=== PATIENT | male | born 1950 | race Caucasian/White ===

== ENCOUNTER 2017-08-20 19:10 | Inpatient (IN) | payer MEDICARE, MEDICAID ==
[2017-08-21 01:34] VITALS: BP 136/83
--- NOTE | 2017-08-21 23:38 | Psychosocial Evaluation ---
DATE OF SERVICE: INITIAL EVALUATION AND MENTAL STATUS EXAM AGE: 66. SEX: Male. PHYSICIAN: Dr. Cohen. CHIEF COMPLAINT: 5150 hold for danger to others and grave disability. HISTORY OF PRESENT ILLNESS: The patient was placed on 5150 hold in [facility] after the patient was agitated and hit people with a walker and was throwing things on the floor and he was disoriented and psychotic according to the hold. The patient has history of schizophrenia. The patient then was transferred to [facility] and then to [facility]. Chart reviewed and patient interviewed and discussed the patient's condition with the staff. The patient said that he was in [facility] for about total 14 months because of violation of probation and the patient was on probation for stealing luggage. The patient said at that time when he stole luggage he was high on heroin and morphine. He admitted that he has a history of schizoaffective disorder and has been paranoid and suspicious lately. Also, has been in angry mood and gets agitated easily. PAST PSYCHIATRIC HISTORY: The patient has history of multiple psychiatric hospitalizations for treatment of schizoaffective disorder. PAST MEDICAL HISTORY: The patient said that he has pain in his left elbow. Otherwise, no major medical problems. SOCIAL HISTORY: The patient is single, never and has no children. He is on disability. The patient is homeless. He denies any history of abuse. The patient was in fpc as mentioned above. CHEMICAL DEPENDENCY HISTORY: The patient said that he used heroin and morphine for a short time prior to his going to fpc. ALLERGIES: No known allergies. MENTAL STATUS EXAMINATION: The patient appears slightly older than his stated age. Anxious. Irritable mood. Thought processes are circumstantial with occasional flight of ideas. The patient denies auditory or visual hallucinations, but seems to be paranoid. The patient denies any thoughts of suicide or homicide. The patient is alert and oriented to time, place, person, and situation. Intact immediate, recent and remote memories. Fair insight and he knows that he have psychiatric problems and needs help. Poor judgment and he was hitting others and throwing objects. He seems to be of average intelligence based on his verbal ability. ASSESSMENT/PRIMARY DIAGNOSIS: Schizoaffective disorder, bipolar type, severe, with psychotic features. TREATMENT PLAN: We will monitor the patient's behavior and condition closely. We will start individual as well as milieu psychotherapy. Also, we will continue the patient on Zoloft and Zyprexa and we will adjust the dose. Also, we will place the patient on 5250 hold for dangerous to others and grave disability. ESTIMATED LENGTH OF STAY: 5-7 days. THE PATIENT'S STRENGTHS AND WEAKNESSES: The patient's strength is not clear at this time. Weaknesses are ineffective coping and poor impulse control and his agitation. AFTER DISCHARGE PLAN: Outpatient treatment and followup and the patient might need placement. CRITERIA FOR DISCHARGE: The patient will have better impulse control, will not be psychotic and we will stabilize psychotropic medications. JOB# [id number]
--- NOTE | 2017-08-22 06:39 | Progress Notes ---
DATE: 08/22/2017 SUBJECTIVE: Chart reviewed and the patient interviewed. Also discussed the patient's condition with the staff and reviewed records and labs. The patient is still anxious and he is still suspicious and slightly paranoid. The patient also still has episodes of irritability and agitation. The patient also is still confused and is still unable to provide any safe plan for self-care. The patient also is restless and still needs lots of directions. Otherwise, the patient started on Zyprexa and Zoloft with no side effects. Also, the patient was placed on 5250 hold. ASSESSMENT: The patient is still confused and considered to be gravely disabled. TREATMENT PLAN: We will continue monitoring his behavior and his condition closely. Also, we will continue to work on his irritability and his agitation. JOB# [id number]
--- NOTE | 2017-08-22 07:28 | History & Physical ---
ADMIT DATE: 08/20/2017 REASON FOR ADMISSION: Psychiatric disorder. HISTORY OF PRESENT ILLNESS: This 66-year-old male admitted to [facility] for underlying psychiatric illness by Dr. Cohen. Dr. Cohen requested medical H and P on this patient. The patient said that he is doing fine. The patient denies any medical complaints. PAST MEDICAL HISTORY: None. PAST SURGICAL HISTORY: Denies. FAMILY HISTORY: Denies. SOCIAL HISTORY: Lives at home. Denies any alcohol, tobacco, or street drug use. CURRENT MEDICATIONS: Acetaminophen, Ativan, Zyprexa, Zoloft, and Ambien. REVIEW OF SYSTEMS: The patient denies any headache or double vision or trouble speech. No nausea, vomiting, or abdominal pain. No chest pain, shortness of breath, dizziness, or palpitations. No other complaints. PHYSICAL EXAMINATION: VITAL SIGNS: Temperature 98.8, pulse 62, respirations 18, blood pressure 114/70, and oxygen 100% on room air. Pain 0/10. GENERAL APPEARANCE: The patient does not seem in acute distress. HEART: S1, S2 normal. LUNGS: Clear to auscultation bilaterally. ABDOMEN: Soft, nontender. NEUROLOGIC: Awake, alert, follows commands. Moves all extremities. Grossly nonfocal exam. EXTREMITIES: No edema. AVAILABLE LABORATORY DATA: No laboratory ____. ASSESSMENT: 1. Psychiatric disorders. 2. Normal history and physical. PLAN: The patient will be continued on current psychotropic medications. We will obtain fasting blood sugar and fasting lipid panel. The patient is medically stable to participate in activities in Geropsych Unit. Thank you Dr. Cohen for allowing me to see this patient. [facility]# [id number]
[2017-08-22 08:20] LABS: % BASOPHILS 0.5 % (0.0-2.0); % EOSINOPHILS 1.5 % (0.0-5.0); % LYMPHOCYTES 19.3 % (20.0-50.0); % MONOCYTES 13.1 % (2.0-10.0); % NEUTROPHILS 65.6 % (40.0-80.0); EOSINOPHILE ABSOLUTE 0.1 Th/cmm (0.1-0.4); HEMATOCRIT 39.9 % (41.0-60); HEMOGLOBIN 13.5 gm/dL (12-16); LYMPHOCYTE ABSOLUTE 1.2 Th/cmm (1.5-3.0); MEAN CELL VOLUME 96.5 fl (80-99); MEAN CORPUSCULAR HEMOGLOBIN 32.7 pg (26.0-30.0); MEAN CORPUSCULAR HGB CONC 33.9 pg (28.0-36.0); MEAN PLATELET VOLUME 7.2 fl; MONOCYTE ABSOLUTE 0.8 Th/cmm (0.3-1.0); PLATELET COUNT 264 Th/cmm (150-400); RED BLOOD COUNT 4.13 Mil/cmm (4.30-5.70); RED CELL DISTRIBUTION WIDTH 12.2 % (11.5-20.0); WHITE BLOOD COUNT 6.1 Th/cmm (4.8-10.8)
[2017-08-22 08:37] LABS: ANION GAP 11.1 (7.0-16.0); BUN - UREA NITROGEN 13 mg/dL (7-25); CALCIUM SERUM 9.5 mg/dL (8.6-10.3); CHLORIDE 96 mEq/L (98-107); CHOLESTEROL 129 mg/dL (<200); CREATININE - SERUM 0.7 mg/dL (0.7-1.3); GFR AFRICAN-AMERICAN > 60.0 ml/min (>90); GFR NON AFRICAN-AMERICAN > 60.0 ml/min; GLUCOSE 74 mg/dL (70-105); HDL -HIGH DENSITY LIPOPROTEIN 56 mg/dL (23-92); POTASSIUM SERUM 4.1 mEq/L (3.5-5.1); SODIUM SERUM 130 mEq/L (136-145); TRIGLYCERIDES 161 mg/dL (<150)
--- NOTE | 2017-08-23 22:57 | Progress Notes ---
DATE: Chart reviewed and the patient interviewed. Also discussed the patient's condition with the staff and reviewed records and labs. The patient is isolative and is still in angry and in irritable mood. Also, is still easily agitated. The patient also is suspicious and paranoid and he is restless. Otherwise, the patient continued to comply with medications with no side effects. ASSESSMENT: The patient is still psychotic and can be dangerous to others. TREATMENT PLAN: We will increase Zyprexa to 20 mg at bedtime and we will continue Zoloft 50 mg every day. Also, continue to work on behavior modification and follow up. JOB# [id number]
--- NOTE | 2017-08-24 20:58 | Progress Notes ---
DATE: SUBJECTIVE: Chart reviewed and the patient interviewed. Also discussed the patient's condition with the staff and reviewed records and labs. The patient is still isolative and withdrawn. The patient also wants to be left alone and is still easily agitated when staff bothering him. Also, is still restless and suspicious and paranoid with severe mood swings. Otherwise, the patient is compliant with taking his medications with no side effects. ASSESSMENT: The patient seems to be more depressed today. TREATMENT PLAN: Continue monitoring his behavior and his condition closely. Also, we will increase Zoloft to 75 mg every day and to continue Zyprexa 20 mg at bedtime and will continue to follow up. [facility]# [id number]
--- NOTE | 2017-08-25 22:42 | Progress Notes ---
DATE: SUBJECTIVE: The patient was seen and evaluated. The patient's chart reviewed. This is Dr. Emanuel covering for Dr. Cohen. IDENTIFYING DATA: A 66-year-old male brought in here from [facility] after placed on a 5150. He was extremely agitated, hitting people with a walker and was throwing things on the floor. He was disoriented, was psychotic. HOSPITAL COURSE: He has been isolative, withdrawn, disengaged and very depressed. Today on [id number] evaluation, continues to be disengaged, depressed. He reports feeling helpless. MENTAL STATUS EXAMINATION: Depressed, melancholic, aloof. ASSESSMENT AND PLAN: The patient is a 66-year-old male who is severely depressed, melancholic, will continue with the current medication regimen, which includes olanzapine 20 mg at nighttime and also recently increase of the Zoloft to 75 mg to target the patient's severe melancholic state. JOB# [id number]
--- NOTE | 2017-08-27 01:15 | Progress Notes ---
DATE: 08/26/2017 SUBJECTIVE: The patient's chart reviewed. Seen and evaluated. Today on [id number] evaluation, the patient reported his medications continues to be tolerated. No side effects of the medications. He reports a recent increase of Zoloft has helped him feel less depressed. MENTAL STATUS EXAMINATION: Feels less depressed, although he is still isolative, withdrawn, disengaged, depressed. ASSESSMENT AND PLAN: The patient is a 66-year-old male tolerating olanzapine at 20 mg and Zoloft at 75 with melancholic state continues to persist, although mild improvement compared from yesterday. [facility]# [id number]
--- NOTE | 2017-08-27 21:25 | Progress Notes ---
DATE: 08/27/[address] Cohen. Case discussed with staff of the patient, reviewed records. This is a 66-year-old male who was admitted on 08/20/2017 on a hold for danger to others and grave disability. The patient was in the [facility] after the patient was agitated, hit people with a walker, was throwing things on the floor, was disoriented and psychotic. According to the hold, the patient with a history of schizophrenia. The patient was sent [facility], then to [facility]. The patient was put in 14 months at [facility] because of violation of probation. The patient was on probation for stealing luggage. He told at that time when he stole luggage, he was high on heroin and morphine with a history of schizoaffective disorder, being paranoid, suspicious, has been in angry moods, easily agitated. The patient continues to be depressed and easily agitated. He is on Zoloft and the dose was improved. He has been isolating himself, withdrawn. When I talked to him, he denies that he has any intent to harm himself or anybody. His Zoloft was increased to 75 mg daily. He is on Zyprexa 20 mg at bedtime that was increased on 08/23/2017. No side effects with the medication, no sedation, no nausea, no extrapyramidal symptoms. We will continue to work with the patient in group therapy, milieu therapy and adjust medication as needed. [facility]# [id number]
--- NOTE | 2017-08-27 22:10 | General Progress Note ---
Subjective - Review of Systems Service Date: 08/27/17 Subjective: Patient doing ok no new event reported Objective - Results Result Diagrams: 08/22/17 07:15 08/22/17 07:15 Recent Labs: Laboratory Last Values WBC 6.1 Th/cmm (4.8-10.8) 08/22/17 07:15 RBC 4.13 Mil/cmm (4.30-5.70) L 08/22/17 07:15 Hgb 13.5 gm/dL (12-16) 08/22/17 07:15 Hct 39.9 % (41.0-60) L 08/22/17 07:15 MCV 96.5 fl (80-99) 08/22/17 07:15 MCH 32.7 pg (26.0-30.0) H 08/22/17 07:15 MCHC Differential 33.9 pg (28.0-36.0) 08/22/17 07:15 RDW 12.2 % (11.5-20.0) 08/22/17 07:15 Plt Count 264 Th/cmm (150-400) 08/22/17 07:15 MPV 7.2 fl 08/22/17 07:15 Neutrophils % 65.6 % (40.0-80.0) 08/22/17 07:15 Lymphocytes % 19.3 % (20.0-50.0) L 08/22/17 07:15 Monocytes % 13.1 % (2.0-10.0) H 08/22/17 07:15 Eosinophils % 1.5 % (0.0-5.0) 08/22/17 07:15 Basophils % 0.5 % (0.0-2.0) 08/22/17 07:15 Sodium 130 mEq/L (136-145) L 08/22/17 07:15 Potassium 4.1 mEq/L (3.5-5.1) 08/22/17 07:15 Chloride 96 mEq/L (98-107) L 08/22/17 07:15 Carbon Dioxide 27.0 mEq/L (21.0-31.0) 08/22/17 07:15 Anion Gap 11.1 (7.0-16.0) 08/22/17 07:15 BUN 13 mg/dL (7-25) 08/22/17 07:15 Creatinine 0.7 mg/dL (0.7-1.3) 08/22/17 07:15 Est GFR ( Amer) > 60.0 ml/min (>90) 08/22/17 07:15 Est GFR (Non-Af Amer) > 60.0 ml/min 08/22/17 07:15 BUN/Creatinine Ratio 18.6 08/22/17 07:15 Glucose 74 mg/dL (70-105) 08/22/17 07:15 Calcium 9.5 mg/dL (8.6-10.3) 08/22/17 07:15 Triglycerides 161 mg/dL (<150) H 08/22/17 07:15 Cholesterol 129 mg/dL (<200) 08/22/17 07:15 LDL Cholesterol Direct 67 mg/dL (75-193) L 08/22/17 07:15 HDL Cholesterol 56 mg/dL (23-92) 08/22/17 07:15 - Physical Exam Vitals and I&O: Vital Signs Temp 97.6 F 08/27/17 20:04 Pulse 88 08/27/17 20:04 Resp 17 08/27/17 20:04 BP 130/53 08/27/17 20:04 Pulse Ox 97 08/27/17 20:04 Intake & Output 08/27/17 08/27/17 08/28/17 06:59 18:59 06:59 Intake Total 300 1200 480 Balance 300 1200 480 Intake: Oral 300 1200 480 Other: # Voids 1 4 2 # Bowel Movements 0 1 Active Medications: Current Medications Acetaminophen (Tylenol) 650 mg PO Q4HR PRN PRN Reason: Mild Pain / Temp above 100 Stop: 10/19/17 19:39 Lorazepam (Ativan) 0.5 mg PO Q4HR PRN; Protocol PRN Reason: Anxiety Stop: 09/19/17 19:39 Olanzapine (Zyprexa) 20 mg PO HS PERLA PRN Reason: Protocol Stop: 10/22/17 10:14 Last Admin: 08/27/17 20:51 Dose: 20 mg Sertraline HCl (Zoloft) 75 mg PO DAILY PERLA PRN Reason: Protocol Stop: 10/23/17 06:25 Last Admin: 08/27/17 09:10 Dose: 75 mg Zolpidem Tartrate (Ambien) 5 mg PO HS PRN PRN Reason: Insomnia Stop: 10/19/17 19:39 Last Admin: 08/27/17 20:51 Dose: 5 mg Cardiovascular: Regular rate Lungs: Clear to auscultation Assessment/Plan - Assessment Assessment: Hyponatremia Hyperlipidemia mental health disorder - Plan Plan: Continue current medication Follow up labs in am Psych follow up Nutritional Asmnt/Malnutr-PDOC - Dietary Evaluation Malnutrition Findings (Please click <Entered> for more info): Nutritional Asmnt/Malnutrition Start: 08/27/17 13: 00 Text: Status: Complete Freq: Document 08/27/17 13:00 CELIA (Rec: 08/27/17 13:11 CELIA [email or web address]) Nutritional Asmnt/Malnutrition Patient General Information Nutritional Screening Low Risk Diagnosis psychosis Pertinent Medical Hx/Surgical Hx schizoaffective disorder Subjective Information per EMR, PO intake 100% Current Diet Order/ Nutrition Support regular Pertinent Medications zoloft Pertinent Labs 08/22 Na 130, Cl 96 Nutritional Hx/Data Height 1.63 m Height (Calculated Centimeters) 162.6 Current Weight (lbs) 71.668 kg Weight (Calculated Kilograms) 71.7 Weight (Calculated Grams) 60884.6 [place] Body Weight 130 Body Mass Index (BMI) 27.1 GI Symptoms GI Symptoms None Last BM 08/26 Difficult in: None Skin Integrity/Comment: intact Estimated Nutritional Goals Calories/Kcals/Kg 25-30 based on IBW 59kg Kcals Calculated 3318-9216 Protein g/k Protein Calculated 59 Fluid: ml 1575-1770ml (1ml/kcal) Nutritional Problem No current Nutrition Prob Problem N/A Intervention/Recommendation Comments 1. Continue with regular diet as ordered. 2. Monitor PO intake, wt, labs and skin integrity 3. F/U as low risk in 7 days, 4/2 Expected Outcomes/Goals Expected Outcomes/Goals 1. PO intake to meet at least 75% of nutritional needs. 2. Wt stability, skin to remain intact, labs to approach WNL.
[2017-08-28 07:55] LABS: ANION GAP 10.1 (7.0-16.0); BUN - UREA NITROGEN 21 mg/dL (7-25); CALCIUM SERUM 9.5 mg/dL (8.6-10.3); CARBON DIOXIDE 27.1 mEq/L (21.0-31.0); CHLORIDE 100 mEq/L (98-107); CREATININE - SERUM 0.7 mg/dL (0.7-1.3); GFR AFRICAN-AMERICAN > 60.0 ml/min (>90); GFR NON AFRICAN-AMERICAN > 60.0 ml/min; GLUCOSE 100 mg/dL (70-105); POTASSIUM SERUM 4.2 mEq/L (3.5-5.1); SODIUM SERUM 133 mEq/L (136-145)
--- NOTE | 2017-08-28 22:58 | Progress Notes ---
DATE: 08/28/[address] Cohen. Case was discussed with staff of the patient and reviewed records. The patient continues to be overwhelmed. Continues to be depressed. He has a placement issue. Continues to be easily agitated. He tolerated to increase Zoloft with no side effects, no sedation, no nausea and no extrapyramidal symptoms. He is on Zyprexa 10 mg at bedtime. We will continue outpatient in group therapy, milieu therapy, and adjust the medications as needed. JOB# [id number]
--- NOTE | 2017-08-29 20:22 | Progress Notes ---
DATE: Chart reviewed and the patient interviewed. Also discussed the patient's condition with the staff and reviewed records and labs. The patient continued to be suspicious and paranoid. The patient also is still guarded and needs redirections. He is easier to redirect him and also it seems that his thought processes are more goal directed. Also, decreased agitation and he has been more cooperative with his treatment. Also, no side effects of medications. ASSESSMENT: The patient is less agitated and less irritable. TREATMENT PLAN: Continue monitoring his behavior closely and we will continue to follow up. JOB# [id number]
--- NOTE | 2017-08-29 21:18 | General Progress Note ---
Subjective - Review of Systems Service Date: 08/29/17 Subjective: Patient doing ok denied any complaints Objective - Results Result Diagrams: 08/22/17 07:15 08/28/17 07:20 Recent Labs: Laboratory Last Values WBC 6.1 Th/cmm (4.8-10.8) 08/22/17 07:15 RBC 4.13 Mil/cmm (4.30-5.70) L 08/22/17 07:15 Hgb 13.5 gm/dL (12-16) 08/22/17 07:15 Hct 39.9 % (41.0-60) L 08/22/17 07:15 MCV 96.5 fl (80-99) 08/22/17 07:15 MCH 32.7 pg (26.0-30.0) H 08/22/17 07:15 MCHC Differential 33.9 pg (28.0-36.0) 08/22/17 07:15 RDW 12.2 % (11.5-20.0) 08/22/17 07:15 Plt Count 264 Th/cmm (150-400) 08/22/17 07:15 MPV 7.2 fl 08/22/17 07:15 Neutrophils % 65.6 % (40.0-80.0) 08/22/17 07:15 Lymphocytes % 19.3 % (20.0-50.0) L 08/22/17 07:15 Monocytes % 13.1 % (2.0-10.0) H 08/22/17 07:15 Eosinophils % 1.5 % (0.0-5.0) 08/22/17 07:15 Basophils % 0.5 % (0.0-2.0) 08/22/17 07:15 Sodium 133 mEq/L (136-145) L 08/28/17 07:20 Potassium 4.2 mEq/L (3.5-5.1) 08/28/17 07:20 Chloride 100 mEq/L (98-107) 08/28/17 07:20 Carbon Dioxide 27.1 mEq/L (21.0-31.0) 08/28/17 07:20 Anion Gap 10.1 (7.0-16.0) 08/28/17 07:20 BUN 21 mg/dL (7-25) 08/28/17 07:20 Creatinine 0.7 mg/dL (0.7-1.3) 08/28/17 07:20 Est GFR ( Amer) > 60.0 ml/min (>90) 08/28/17 07:20 Est GFR (Non-Af Amer) > 60.0 ml/min 08/28/17 07:20 BUN/Creatinine Ratio 30.0 08/28/17 07:20 Glucose 100 mg/dL (70-105) 08/28/17 07:20 Calcium 9.5 mg/dL (8.6-10.3) 08/28/17 07:20 Triglycerides 161 mg/dL (<150) H 08/22/17 07:15 Cholesterol 129 mg/dL (<200) 08/22/17 07:15 LDL Cholesterol Direct 67 mg/dL (75-193) L 08/22/17 07:15 HDL Cholesterol 56 mg/dL (23-92) 08/22/17 07:15 - Physical Exam Vitals and I&O: Vital Signs Temp 98.3 F 08/29/17 20:00 Pulse 87 08/29/17 20:00 Resp 20 08/29/17 20:00 BP 119/67 08/29/17 20:00 Pulse Ox 98 08/29/17 20:00 Intake & Output 08/29/17 08/29/17 08/30/17 06:59 18:59 06:59 Intake Total 660 1520 Balance 660 1520 Intake: Oral 660 1520 Other: # Voids 2 2 # Bowel Movements 1 Active Medications: Current Medications Acetaminophen (Tylenol) 650 mg PO Q4HR PRN PRN Reason: Mild Pain / Temp above 100 Stop: 10/19/17 19:39 Lorazepam (Ativan) 0.5 mg PO Q4HR PRN; Protocol PRN Reason: Anxiety Stop: 09/19/17 19:39 Olanzapine (Zyprexa) 20 mg PO HS PERLA PRN Reason: Protocol Stop: 10/22/17 10:14 Last Admin: 08/29/17 20:55 Dose: 20 mg Sertraline HCl (Zoloft) 75 mg PO DAILY PERLA PRN Reason: Protocol Stop: 10/23/17 06:25 Last Admin: 08/29/17 08:42 Dose: 75 mg Zolpidem Tartrate (Ambien) 5 mg PO HS PRN PRN Reason: Insomnia Stop: 10/19/17 19:39 Last Admin: 08/29/17 20:55 Dose: 5 mg Cardiovascular: Regular rate Lungs: Clear to auscultation Assessment/Plan - Assessment Assessment: Nicotine dependancy Hyperlipidemia Mental health disorder - Plan Plan: Smoking cessation discussed Continue current medication Psych follow up Nutritional Asmnt/Malnutr-PDOC - Dietary Evaluation Malnutrition Findings (Please click <Entered> for more info): Nutritional Asmnt/Malnutrition Start: 08/27/17 13: 00 Text: Status: Complete Freq: Document 08/27/17 13:00 CELIA (Rec: 08/27/17 13:11 ROSALBA [email or web address]) Nutritional Asmnt/Malnutrition Patient General Information Nutritional Screening Low Risk Diagnosis psychosis Pertinent Medical Hx/Surgical Hx schizoaffective disorder Subjective Information per EMR, PO intake 100% Current Diet Order/ Nutrition Support regular Pertinent Medications zoloft Pertinent Labs 08/22 Na 130, Cl 96 Nutritional Hx/Data Height 1.63 m Height (Calculated Centimeters) 162.6 Current Weight (lbs) 71.668 kg Weight (Calculated Kilograms) 71.7 Weight (Calculated Grams) 38835.6 [place] Body Weight 130 Body Mass Index (BMI) 27.1 GI Symptoms GI Symptoms None Last BM 08/26 Difficult in: None Skin Integrity/Comment: intact Estimated Nutritional Goals Calories/Kcals/Kg 25-30 based on IBW 59kg Kcals Calculated 3697-9272 Protein g/k Protein Calculated 59 Fluid: ml 1575-1770ml (1ml/kcal) Nutritional Problem No current Nutrition Prob Problem N/A Intervention/Recommendation Comments 1. Continue with regular diet as ordered. 2. Monitor PO intake, wt, labs and skin integrity 3. F/U as low risk in 7 days, 4/2 Expected Outcomes/Goals Expected Outcomes/Goals 1. PO intake to meet at least 75% of nutritional needs. 2. Wt stability, skin to remain intact, labs to approach WNL.
--- NOTE | 2017-09-01 21:31 | Progress Notes ---
DATE: 09/01/2017 SUBJECTIVE: The patient brought in on a hold from [facility]. He was agitated, hitting people with a walker, throwing things on the floor, disoriented, psychotic. He was apparently then transferred to [facility], then [facility]. Dr. Cohen over the past few days has been noting that the patient continued to be suspicious, highly paranoid, guarded, needing redirection. He has been calmer, somewhat cooperative, less agitated, less irritable, but still concerns about impulse control. He is taking his medications, recent dose increases which have been well tolerated, somewhat withdrawn and isolative. ASSESSMENT: The patient seems calmer, more cooperative, somewhat more engaged on exam. PLAN: We will continue to monitor, continue to titrate medications, continue to adjust medications and monitor for side effects and __during course of ___ hospitalization. JOB# [id number] DOROTHEA
--- NOTE | 2017-09-02 15:57 | Progress Notes ---
DATE: 08/30/2017 PSYCHIATRIC PROGRESS NOTE SUBJECTIVE: Chart reviewed and the patient interviewed. Also discussed the patient's condition with the staff and reviewed records and labs. The patient continued to be isolative and withdrawn. Also, is still in a depressed mood. He also is interacting minimally with others. The patient denied any intention to harm himself. He also is compliant with taking the Zoloft with no side effect. ASSESSMENT: The patient is still depressed. TREATMENT PLAN: We will continue monitoring his behavior and his condition closely. Also, increase Zoloft to 100 mg at bedtime and we will continue to follow up. JOB# [id number]
--- NOTE | 2017-09-02 16:22 | Progress Notes ---
DATE: 09/02/2017 SUBJECTIVE: The patient placed on a hold. He has been coming from shelter. He states he went to shelter because he was littering or rather picking up ___trash;__ apparently with a violation of probation, apparently using heroin and morphine in the past, history of stealing a luggage, history of schizoaffective disorder. The patient still remains somewhat isolative, not the best historian, does not know where he is going to go, homeless; however, he may be able to go to [facility], still needing some redirection, still somewhat internally preoccupied, but no agitation. He seems calmer somewhat more cooperative, answering questions appropriately. Sleeping well, eating well. MEDICATIONS: Noted including doses and frequencies. ASSESSMENT: The patient remains somewhat isolative, but calmer, more engaged on exam, friendly, answering questions appropriately. Currently on Zyprexa and Zoloft for his diagnosis. PLAN: We will continue to monitor. The patient is not experiencing any side effects. We will coordinate care with social work regarding safe discharge plan and good psychiatric followup. JOB# [id number] DOROTHEA
--- NOTE | 2017-09-02 20:52 | Progress Notes ---
DATE: 09/02/2017 SUBJECTIVE: Chart reviewed and the patient interviewed. Also discussed the patient's condition with the staff and reviewed records and labs. The patient is withdrawn and is isolative. He also is interacting minimally with others. The patient also is still feeling hopeless at time. Otherwise, the patient is compliant with taking his medications with no side effects of medications. ASSESSMENT: The patient is still depressed. TREATMENT PLAN: Continue monitoring his behavior and his condition and continue Zoloft 100 mg at bedtime and we will continue to follow up. JOB# [id number]
--- NOTE | 2017-09-05 22:12 | Progress Notes ---
DATE: 09/05/2017 Case was discussed with staff of the patient, reviewed records. This is a well known case to me because I have seen him before covering for Dr. Cohen. The patient continues to be withdrawn, isolating having minimal interaction with others. He is still feeling hopeless and depressed. He has been, however, compliant with the medication with no side effects and no sedation, no nausea and the Zoloft was increased on 08/30/2017 to 100 mg a day. He is on olanzapine 15 mg at bedtime with no side effects, no sedation, no nausea. He is still not ready to go to a lesser level of care because of his severe depression, feeling hopeless and helpless. We will continue still unable to formulate a safe plan for self-care. We will continue to work with the patient in group therapy, milieu therapy, and adjust the medications as needed. JOB# [id number]
--- NOTE | 2017-09-06 16:15 | Progress Notes ---
DATE: SUBJECTIVE: Case was discussed with staff of patient and reviewed records. The patient continues to be isolating, continues to be withdrawn, continues to have minimal interaction, feeling depressed, hopeless and helpless. He has been compliant with the medication with no side effects. PLAN: His ____ was increased recently. No side effects to medication. No sedation or nausea. No extrapyramidal symptoms. I tried to encourage patient to get out of the room and I asked the staff to try to encourage him to get out of the room. We will continue the patient in group therapy, milieu therapy, and adjust medications as needed. JOB# [id number]
--- NOTE | 2017-09-07 21:09 | Progress Notes ---
DATE: 09/07/2017 SUBJECTIVE: Case was discussed with the staff of the patient and reviewed records. The patient today was in the group room, though he was sitting by himself, not participating in any meaningful conversation. He continues to be depressed, continues to feel at times hopeless and helpless. No side effects with the medication, no sedation, no nausea. He is also on olanzapine 15 mg at bedtime with no extrapyramidal symptoms. We will continue to work with the patient in group therapy, milieu therapy, and adjust medication as needed. JOB# [id number]
--- NOTE | 2017-09-08 18:15 | Progress Notes ---
DATE: The patient was seen and evaluated. The patient's chart reviewed. Overnight, nursing staff reported the patient continues to be extremely irritable, agitated. Today on [id number] evaluation, the patient presents very angry. Reports "I don't want to fucking talk to you, get away." MENTAL STATUS EXAMINATION: Suspicious, paranoid, feeling helpless and refusing the interview. ASSESSMENT AND PLAN: The patient continues to present with intermittent aggressive behavior verbally and disengaged, continues to show extremely poor impulse control as noted above. We will continue with primary psychiatrist's treatment plan and goals, which include olanzapine 15 mg at bedtime, is able to tolerate without complications or side effects of the medications. [facility]# [id number]
--- NOTE | 2017-09-09 09:20 | Progress Notes ---
DATE: The patient was seen and evaluated. The patient's chart reviewed. Overnight nursing staff reported the patient continues to need a lot of redirection, easily irritable. Today on [id number] evaluation, the patient continues to refuse the interview. He reports that he wants to see his only doctor that he has and then disengages in interview. MENTAL STATUS EXAMINATION: Suspicious, paranoid. ASSESSMENT AND PLAN: The patient is a 66-year-old male who continues to present irritable, agitated and unable to engage in a linear conversation, need a lot of redirection. We will continue with the current medication regimen that continues to target the patient's residual paranoid and psychotic symptoms. JOB# [id number]
--- NOTE | 2017-09-10 12:14 | Progress Notes ---
DATE: 09/10/2017 SUBJECTIVE: The patient placed on a hold, coming from [place]. He was agitated, hitting people with a walker, throwing things on the floor, disoriented, psychotic, apparent history of schizophrenia. On [id number]-fn-neth, the patient noted to be angry and upset; however, he is significantly calmer, seems to be doing well with the current dosing of Zyprexa. States he has also taken Seroquel in the past. Also, on Zoloft. Staff noting he has been calmer, more cooperative. He does get angry and upset at times somewhat short tempered but no escalation of behaviors. He is not hitting anybody. He is more linear on exam. He really wants to go home. He is concerned about his family. He wants to be more in touch with his family. He is well oriented as to why he is here. ASSESSMENT: The patient calmer, more cooperative, less paranoia, less suspiciousness, more linear and engaged, sleeping well, eating well, taking his medications. PLAN: We will continue to monitor. Continue Zyprexa. Continue Zoloft. We will err on the side of caution and monitor for further 24 hours. JOB# [id number]
--- NOTE | 2017-09-11 11:36 | Progress Notes ---
DATE: 09/11/2017 SUBJECTIVE: The patient currently noting he is doing clinical much better. He has been calmer, more cooperative. He got somewhat upset yesterday, but about 20 minutes later came and apologized, apologetic that he was so upset, he just wants to leave. He feels he does not need to be anymore. Sleeping well, eating well, getting along well with staff and peers, hopeful, motivated, taking his medications. No overt side effects. ASSESSMENT: The patient calmer, more cooperative, more linear and engaged, no SI, no HI, no intent, no plan. No overt psychotic symptoms, better insight, certainly better impulse control. PLAN: We will discharge today. [facility]# [id number]
== END 2017-09-11 18:45 | DRG 885 ==
LOC: GERO 19:10
PROVIDERS: ADMIT Psychiatry & Neurology Psychiatry; ATTEND Psychiatry & Neurology Psychiatry
DX: F25.0 Schizoaffective disorder, bipolar type (principal); F29 Unspecified psychosis not due to a substance or known physiological condition; F32.9 Major depressive disorder, single episode, unspecified; F17.210 Nicotine dependence, cigarettes, uncomplicated; E78.5 Hyperlipidemia, unspecified
CPT/HCPCS: 36415-UA; 80048-TC; 80061-TC; 82948-90; 85025-TC; 90899; G0410; J7051; Z7610